=== PATIENT | female | born 1990 | race Two or more races ===

== ENCOUNTER 2016-11-10 20:22 | Emergency (ER) | payer SELFPAY ==
[~2016-11-10] VITALS: Ht 167.6 cm; Wt 54.4 kg
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
--- NOTE | 2016-11-10 20:35 | NUR ---
GRETCHEN WARP PLACER AT BEDSIDE FOR EVAL.
[2016-11-10] MEDS ORDERED: LORAZEPAM 1 MG TABLET ONE (20:38)
[2016-11-10] MEDS ORDERED: LORAZEPAM 1 MG TABLET PO ONE (21:00)
--- NOTE | 2016-11-10 21:28 | NUR ---
PT STATES FEELING A LITTLE BETTER AFTER MEDICATION. WANTS TO GO HOME. TO TAKE PT HOME. D/C IN STABLE CONDITION.
[2016-11-10 21:30] VITALS: BP 128/76
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
== END 2016-11-10 21:31 | disposition home or self-care (01) ==
LOC: ER 20:24
DX: F41.9 Anxiety disorder, unspecified (principal); F14.10 Cocaine abuse, uncomplicated
CPT/HCPCS: A4606